=== PATIENT | male | born 1935 | race Caucasian/White ===

== ENCOUNTER 2023-06-25 19:27 | Inpatient (IN) | payer MEDICARE, OTHER, SELFPAY ==
[2023-06-25] VITALS (8 sets, daily range): BP systolic 140–180; BP diastolic 77–109; PULSE 74–95; RESP 20–44; TEMP 36.2–36.6; O2SAT 88–97; BMI 26.6; BMI 27.5
--- NOTE | 2023-06-25 19:43 | EKG12_ITS ---
Test Reason : SOB Blood Pressure : / mmHG Vent. Rate : 067 BPM Atrial Rate : 086 BPM P-R Int : 000 ms QRS Dur : 114 ms QT Int : 406 ms P-R-T Axes : 000 -32 092 degrees QTc Int : 429 ms Critical Test Result: AV Block Sinus rhythm with 2nd degree A-V block (Mobitz I) Left axis deviation Left ventricular hypertrophy with repolarization abnormality ( R in aVL , Eyal product , Romhilt-E stes ) Abnormal ECG Confirmed by RAFAT DASH, MIKE ([id number]), film editor ARSEN CASTRO ([id number]) on 06/29/2023 12:31:52 PM Referred By: CHERY Confirmed By:AMBROSE DOUGLASS MD
[2023-06-25] MEDS: MethylPREDNISolone 125 MG/2 ML Vial IV (20:04)
[2023-06-25] MEDS: Albuterol 2.5 MG/3 ML VIAL.NEB. INHALATION (20:04)
[2023-06-25] MEDS: Ipratropium/Albuterol Sulfate 3 ML AMPUL.NEB INHALATION (20:04)
[2023-06-25 20:10] LABS: Absolute Neutrophil Count 4.4 X10^3/uL (2.0-7.7); Basophil# 0.08 X10^3/uL; Basophil% 0.9 % (0-1); Eosinophil# 0.79 X10^3/uL; Eosinophils% 9.3 % (0-5); Hematocrit 43.8 % (40-54); Hemoglobin 13.7 g/dL (13.0-16.5); Lymphocyte % 30.5 % (19-41); Mean Corp Hgb Conc 31.3 g/dL (32-36); Mean Corpuscular Hgb 29.5 pg (27.0-32.0); Mean Corpuscular Volume 94.2 fL (80-94); Mean Platelet Vol. 9.8 fl (6.2-12.0); Monocyte# 0.68 X10^3/uL; NRBC Flagged by Analyzer 0 % (0-5); Neutrophil # 4.35 X10^3/uL (2.7-7.7); Neutrophil % 51.1 % (47-70); Platelet Count 233 K/mm3 (150-450); RBC Distribution Width CV 13.8 % (11.6-14.6); RBC Distribution Width SD 47.6 fl (35.1-43.9); Red Blood Count 4.65 M/mm3 (4.6-6.2); White Blood Count 8.5 K/mm3 (4.4-11.0)
[2023-06-25 20:29] LABS: ALB/GLOB Ratio 0.9 RATIO (0.9-2.4); AST(SGOT) 21 U/L (15-37); Alanine Aminotransfer ALT/SGPT 14 U/L (16-61); Albumin, Serum 3.4 g/dL (3.2-5.0); Alkaline Phosphatase 95 U/L (45-117); Anion Gap 4 (5-15); BUN 38 mg/dL (7-18); BUN/Creat Ratio 20.9 RATIO (10-20); Calcium,Total 8.3 mg/dL (8.5-10.1); Chloride 111 mmol/L (98-107); Creatinine, Serum 1.82 mg/dL (0.70-1.30); EST Glomerular Filtration Rate 38 mL/min (>60); Est Glom Filt Rate - Afr Amer 46 mL/min (>60); Estimated Creatinine Clearance 27.66 ml/min; Globulin 3.9 g/dL (2.2-4.2); Glucose 118 mg/dL (74-106); Potassium 4.9 mmol/L (3.5-5.1); Protein, Total 7.3 g/dL (6.4-8.2); Sodium Level 143 mmol/L (136-145); Troponin-I HS 42 pg/mL (3.0-78.0)
[2023-06-25 20:39] LABS: Partial Thromboplast Time 33.5 Seconds (24.1-36.2); Prothrombin Time (Protime)PT. 13.5 SECONDS (11.7-14.9)
--- NOTE | 2023-06-25 20:43 | RAD_ITS ---
STUDY: X-RAY CHEST REASON FOR EXAM: Male, 87 years old. hypoxia TECHNIQUE: AP portable COMPARISON: None. FINDINGS: Bilateral reticulonodular interstitial infiltrates in both lower lobes likely inflammatory.... There is no demonstrated pleural abnormality. Postop changes status post median sternotomy and CABG Normal size heart. Normal mediastinum and silvia. Normal visualized pulmonary arteries. Normal visualized aortic arch and descending thoracic aorta. Normal visualized thoracic spine. Normal visualized ribs, and clavicles. Right shoulder prosthesis noted. There is no demonstrated abnormality of the visualized soft tissue structures of the upper abdomen. RAD/Chest 1 View (Portable) IMPRESSION: Bilateral reticulonodular interstitial infiltrates in both lower lobes. True pulmonary nodule cannot be excluded. CT would be useful for more definitive evaluation Electronically Signed: Vinny Elliott MD at 21:09 EDT ,
[2023-06-25 20:44] LABS: Lactic Acid 1.2 mmol/L (0.4-1.9)
[2023-06-25 21:23] LABS: BNP,B-Type NATRIURETIC PEPTIDE 238.2 pg/mL (0-100); D-Dimer Quantitative (DVT/PE) 1.47 FEU/ug/m (0.27-0.49)
[2023-06-25 21:59] LABS: Bacteria 0 SEEN /hpf (None Seen); Mucous, Urine 0 SEEN /hpf (<or=2+); Red Blood Cells-Urine 0 SEEN /hpf (0-5)
[2023-06-25 22:00] LABS: Color, Urine Yellow (Yellow); Glucose, Dipstick Normal (Normal); Ketone-Dipstick Negative (Negative); Leukocyte Esterase-Dipstick Negative /ul (Negative); Nitrite-Dipstick Negative (Negative); Occult Blood-Urine 25 /ul (Negative); Protein-Dipstick 100 mg/dl (Negative); Urine Bilirubin Dipstick Negative (Negative); Urine Clarity Clear (Clear); Urine Urobilinogen Normal (Normal)
--- NOTE | 2023-06-25 22:36 | ED.VIS.DYS ---
HPI History of Present Illness Chief Complaint: Shortness of Breath Narrative Narrative: 87-year-old male presenting with shortness of breath. He states is been ongoing for about 4 weeks. States the last week has been worse. He has been wheezing at home. Does not have a history of asthma or COPD but he does have fibrosis. He has not a fever. His dyspnea is worse with exertion. He denies any chest pain. He admits to a CABG but states he is never had CHF. PFSH PFSH Home Medications Omeprazole [Prilosec] 40 mg PO DAILY 02/07/15 [History Last Taken 02/07/15 08:00] aspirin 81 mg chewable tablet 81 mg PO DAILY@0800 02/07/15 [History Last Taken 02/07/15 08:00] levothyroxine 125 mcg tablet 125 mcg PO DAILY 02/07/15 [History Last Taken 02/07/15 08:00] metoprolol tartrate 25 mg tablet 12.5 mg PO BID 02/07/15 [History Last Taken 02/07/15 08:00] pravastatin 40 mg tablet 40 mg PO DAILY 02/07/15 [History Last Taken 02/07/15 08:00] atorvastatin 80 mg tablet 80 mg PO DAILY 06/25/23 [History Last Taken Unknown] lisinopril 5 mg tablet 2.5 mg PO DAILY 06/25/23 [History Last Taken Unknown] Allergy/AdvReac Type Severity Reaction Status Date / Time No Known Allergies Allergy Verified 06/25/23 19:29 Social History Smoking Status: Never smoker [facility] ED Constitutional Constitutional ED: Denies chills, fever(s) or sweats Eyes Eyes: Denies blurry vision or change in vision ENT ENT ED: Denies ear pain or sore throat Cardiovascular Cardiovascular: Denies chest pain, palpitations or racing heartbeat Respiratory/Chest Respiratory/Chest: Reports cough, dyspnea and dyspnea on exertion; Denies sputum Gastrointestinal Gastrointestinal: Denies abdominal pain, constipation, diarrhea, nausea or vomiting Genitourinary Genitourinary ED: Denies dysuria, hematuria or urinary frequency Musculoskeletal Musculoskeletal: Denies arthralgias, myalgias or neck pain Integumentary Denies abscess, Abrasions or rash Neurologic Neurologic: Denies headache(s), paresthesias or weakness Psychiatric Psychiatric: Denies anxiety, depression, suicidal ideation or suicidal thoughts Endocrine Endocrinology: Denies polydipsia or polyuria EXAM Physical Exam Const Vital Signs: 06/25/23 19:29 06/25/23 19:40 06/25/23 19:57 Temperature 97.2 F L 97.5 F L Temperature Source Temporal Temporal Pulse Rate 95 81 Respiratory Rate 44 H 24 H Respiratory Effort Respiratory Depth Respiratory Pattern Blood Pressure 158/109 H 180/109 H Blood Pressure Mean 125 132 Pulse Ox 88 97 95 Oxygen Delivery Method Room Air Nasal Cannula Oxygen Flow Rate (L/min) 2 06/25/23 20:32 06/25/23 20:40 06/25/23 20:40 Temperature 97.4 F L Temperature Source Temporal Pulse Rate 79 76 76 Respiratory Rate 20 H 20 H 20 H Respiratory Effort Respiratory Depth Respiratory Pattern Tachypnea Blood Pressure 156/77 H 156/77 H Blood Pressure Mean 103 103 Pulse Ox 95 96 Oxygen Delivery Method Nasal Cannula Nasal Cannula Oxygen Flow Rate (L/min) 2 2 06/25/23 20:41 06/25/23 21:34 06/25/23 21:42 Temperature 97.9 F Temperature Source Oral Pulse Rate 77 74 Respiratory Rate 24 H Respiratory Effort Short of Breath Labored Respiratory Depth Deep Respiratory Pattern Tachypnea Blood Pressure 140/93 H Blood Pressure Mean 108 Pulse Ox 96 97 Oxygen Delivery Method Nasal Cannula Room Air Nasal Cannula Oxygen Flow Rate (L/min) 2 2 Positive unkempt Constitutional Narrative: Appears to be in respiratory distress General Appearance ED: unkempt Eyes PERRL and EOMs intact bilaterally Neck no lymphadenopathy and supple Resp Resp Narrative: Neck. Effort and Inspection: tachypneic, respiratory distress, labored, retractions intercostal and subcostal, uses accessory muscles and tripod positioning; Negative for tracheal deviation Auscultation: wheezes expiratory wheezes and inspiratory wheezes Cardio regular rate GI non-tender Extremity normal to inspection Neuro oriented x3 and CN's II-XII intact bilaterally Sensorium / Orientation: alert, oriented to person, oriented to place and oriented to time Psych Appearance: unkempt Mood & Affect: anxious MDM MDM MDM Narrative Medical decision making narrative: Presenting in respiratory distress. He is been short of breath for a month worse over the last week. No fevers or chills. No chest pain. He is audibly wheezing from the doorway. Breathing treatments were given as well as Solu-Medrol. Differential includes CHF, pneumonia, ACS, PE, electrolyte abnormalities, dehydration, COVID, influenza, sepsis, UTI. Patient pancultured. CBC was obtained to assess white blood cell count, hemoglobin, platelets. CMP to assess liver function, renal function, electrolytes. High-sensitivity troponin and EKG were obtained to assess for ischemia and dysrhythmia. BNP to assess for CHF. D-dimer to assess for PE. Chest x-ray my interpretation shows reticulonodular infiltrates in the lower lobes bilaterally. Radiology interpretation agrees. EKG shows a sinus rhythm with a ventricular rate of 67 bpm with changes possibly consistent with second-degree AV block type Mobitz I. CBC shows no significant leukocytosis with white blood cell count 8.5. Hemoglobin stable at 13.7. Platelets are normal at 233. D-dimer was elevated at 147 however the patient's GFR is low at 38 with the last comparison in 2014. Patient is given gentle hydration as he is 87 years old. He is not hypotensive. INR normal. Lactic acid 1.2. Also is negative for infection. BNP 238. Sensitivity troponin 42 reevaluation patient is doing much better he is on 2 L of oxygen and he is not in any respiratory distress. Patient given Rocephin and azithromycin. Discussed with the hospitalist who will hydrate the patient and possibly do a CTA in the morning. Patient admitted in stabilized condition. Impression: 1. EUSEBIO 2. Hypoxic respiratory failure 3. Pneumonia 4. Elevated D-dimer 5. Abnormal EKG Lab Data Attestation: I reviewed the patient's lab results. Labs: Laboratory Results - last 24 hr 06/25/23 06/25/23 06/25/23 19:50 20:56 21:40 WBC 8.5 RBC 4.65 Hgb 13.7 Hct 43.8 MCV 94.2 H MCH 29.5 MCHC 31.3 L RDW Std Deviation 47.6 H RDW Coeff of Allison 13.8 Plt Count 233 MPV 9.8 Immature Gran % (Auto) 0.200 Neut % (Auto) 51.1 Lymph % (Auto) 30.5 Cowley % (Auto) 8.0 Eos % (Auto) 9.3 H Baso % (Auto) 0.9 Absolute Neuts (auto) 4.4 Absolute Lymphs (auto) 2.60 Nucleated RBC % 0 PT 13.5 INR 1.0 APTT 33.5 D-Dimer Quant (PE/DVT) 1.47 H* Sodium 143 Potassium 4.9 Chloride 111 H Carbon Dioxide 28.0 Anion Gap 4 L BUN 38 H Creatinine 1.82 H Estim Creat Clear Calc 27.66 Est GFR (MDRD) Af Amer 46 L Est GFR (MDRD) Non-Af 38 L BUN/Creatinine Ratio 20.9 H Glucose 118 H Lactic Acid 1.2 Calcium 8.3 L Total Bilirubin 0.30 AST 21 ALT 14 L Alkaline Phosphatase 95 Troponin I High Sens 42 B-Natriuretic Peptide 238.2 H Total Protein 7.3 Albumin 3.4 Globulin 3.9 Albumin/Globulin Ratio 0.9 Urine Color Yellow Urine Clarity Clear Urine pH 6.0 Ur Specific [place] 1.020 Urine Protein 100 H Urine Glucose (UA) Normal Urine Ketones Negative Urine Occult Blood 25 H Urine Nitrite Negative Urine Bilirubin Negative Urine Urobilinogen Normal Ur Leukocyte Esterase Negative Urine RBC 0 SEEN Urine WBC 0-5 SEEN Ur Squamous Epith Cells 0-5 SEEN Urine Bacteria 0 SEEN Urine Mucus 0 SEEN Radiography Diagnostic Testing: Clinical Impression(s) from Imaging Studies Chest X-Ray 06/25/23 20:43 IMPRESSION: Bilateral reticulonodular interstitial infiltrates in both lower lobes. True pulmonary nodule cannot be excluded. CT would be useful for more definitive evaluation Electronically Signed: Vinny Elliott MD at 21:09 EDT Reading Location ID and State: [facility] / [place] Tel , Service support , Discharge Plan Triage Chief Complaint: Shortness of Breath ED Provider: David Lynch Dx/Rx/DC Orders Prescriptions: No Action pravastatin 40 MG tablet 40 mg PO DAILY Patient Comments: cholesterol levothyroxine 125 MCG tablet 125 mcg PO DAILY Patient Comments: thyroid aspirin 81 MG tablet,chewable 81 mg PO DAILY@0800 Patient Comments: blood thinner metoprolol tartrate 25 MG tablet 12.5 mg PO BID Patient Comments: blood pressure Omeprazole [Prilosec] 40 MG capsule 40 mg PO DAILY Patient Comments: stomach atorvastatin 80 mg tablet 80 mg PO DAILY lisinopril 5 mg tablet 2.5 mg PO DAILY Primary Care Provider: Dayday Spicer Referrals: Dayday Spicer MD [Primary Care Provider] -
[2023-06-25 22:39] LABS: Squamous Epithelial Cells - UA 0-5 SEEN /hpf (0-5); White Blood Cells 0-5 SEEN /hpf (0-5)
--- NOTE | 2023-06-25 22:51 | HP.PCM.HOS_ITS ---
HPI - General General Date of Admission: 06/25/23 Date of Service: 06/25/23 Chief Complaint: Shortness of breath for 3 to 4 weeks got worse in last 1 week HPI Narrative CICI HUGO, is a 87 M with history of chronic interstitial lung dis ease/fibrosis came to ER with his family for shortness of breath for 4 weeks. Patient is hard of hearing and history mainly taken from patient's . 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 Patient is not on home oxygen. He went for fishing last weekend and after that patient shortness of breath got worse. Patient has mild cough but for last 4 weeks his cough has been worse with bringing up thick yellow nasty phlegm. Patient also felt his mucus was stuck in the chest but last few days he is able to cough out. Denies fever or chills. Patient has history of coronary artery disease and stent and was later on had bypass. Patient is never been a smoker. Denies any occupational inhalation history. In ED patient was tachypneic with respiratory rate 44 blood pressure 158/109 pulse ox 88% on room air. Currently saturating 97% on 2 L of oxygen. Chest x-ray today individually reviewed. Shows bilateral lower lobes patchy reticulonodular interstitial infiltrates in both lungs. Patient creatinine is high therefore CT angiogram was not done but CT lung without contrast was done. Labs EKG and imaging discussed in assessment plan. [facility] Home Medications Omeprazole [Prilosec] 40 mg PO DAILY 02/07/15 [History Last Taken 02/07/15 08:00] aspirin 81 mg chewable tablet 81 mg PO DAILY@0800 02/07/15 [History Last Taken 02/07/15 08:00] levothyroxine 125 mcg tablet 125 mcg PO DAILY 02/07/15 [History Last Taken 02/07/15 08:00] metoprolol tartrate 25 mg tablet 12.5 mg PO BID 02/07/15 [History Last Taken 02/07/15 08:00] pravastatin 40 mg tablet 40 mg PO DAILY 02/07/15 [History Last Taken 02/07/15 08:00] atorvastatin 80 mg tablet 80 mg PO DAILY 06/25/23 [History Last Taken Unknown] lisinopril 5 mg tablet 2.5 mg PO DAILY 10/20/23 [History Last Taken Unknown] Allergy/AdvReac Type Severity Reaction Status Date / Time No Known Allergies Allergy Verified 06/25/23 19:29 Social History Smoking Status: Never smoker ROS ROS Narrative Constitutional: Reports fatigue and weakness. No fever. HEENT: Bilateral hearing impairment. Reports systems reviewed and no addt'l complaints, except as documented Respiratory/Chest: Dyspnea on mild exertion. Rest as described in HPI. CVS: No recent chest pain pressure or tightness Gastrointestinal: Denies coffee ground emesis, hematemesis or vomiting Genitourinary: Denies burning urination or new urinary tract symptoms Musculoskeletal: Denies acute joint pain or limited range of motion. No acute injury Neurologic: Denies seizure-like symptoms. skin: No ulcer. No rash Endocrinology: Reports systems reviewed and no addt'l complaints, except as documented Hematologic/Lymphatic: Reports systems reviewed and no addt'l complaints, except as documented Rest 14 ROS are negative except as mentioned in HPI Vital Signs Vital Signs Vital Signs: 06/25/23 19:29 06/25/23 19:40 06/25/23 19:57 Temperature 97.2 F L 97.5 F L Temperature Source Temporal Temporal Pulse Rate 95 81 Respiratory Rate 44 H 24 H Respiratory Effort Respiratory Depth Respiratory Pattern Blood Pressure 158/109 H 180/109 H Blood Pressure Mean 125 132 Pulse Ox 88 97 95 Oxygen Delivery Method Room Air Nasal Cannula Oxygen Flow Rate (L/min) 2 06/25/23 20:32 06/25/23 20:40 06/25/23 20:40 Temperature 97.4 F L Temperature Source Temporal Pulse Rate 79 76 76 Respiratory Rate 20 H 20 H 20 H Respiratory Effort Respiratory Depth Respiratory Pattern Tachypnea Blood Pressure 156/77 H 156/77 H Blood Pressure Mean 103 103 Pulse Ox 95 96 Oxygen Delivery Method Nasal Cannula Nasal Cannula Oxygen Flow Rate (L/min) 2 2 06/25/23 20:41 06/25/23 21:34 06/25/23 21:42 Temperature 97.9 F Temperature Source Oral Pulse Rate 77 74 Respiratory Rate 24 H Respiratory Effort Short of Breath Labored Respiratory Depth Deep Respiratory Pattern Tachypnea Blood Pressure 140/93 H Blood Pressure Mean 108 Pulse Ox 96 97 Oxygen Delivery Method Nasal Cannula Room Air Nasal Cannula Oxygen Flow Rate (L/min) 2 2 Weight Weight: 180 lb 15.992 oz Body Mass Index (BMI) 27.5 Physical Exam Narrative General: Alert, Oriented x3, Cooperative HEENT: Bilateral profound hearing impairment atraumatic, PERRLA, EOMI, Normocephalic Oral: Oral mucosa dry. No Gingival or Mucosal Lesions/ Ulcerations Neck: Supple, No JVD, Negative Carotid Bruits Lungs: Air entry diminished in bilateral lung bases. Bilateral inspiratory crepitations. Dyspnea on exertion. Cardiovascular: Regular rate, Regular Rhythm, Normal S1, Normal S2, grade 4/6 systolic murmur over right second ICS, LLSB and cardiac apex Abdomen: Bowel Sounds Present, Soft, Non Tender, Non-Distended : No renal angle tenderness. No suprapubic tenderness. Extremities: No edema, Capillary Refill Less than 3 Seconds Skin: No rashes, No breakdown Musculoskeletal: No Tenderness to Palpation of Joints or Extremities. ROM full and intact. Neurological: Cranial nerves II-XII grossly intact, DTR 2+/4. No acute focal neurological deficit. Psych/Mental Status: Normal Affect, Appropriate. Results Lab / Micro Data 06/25/23 19:50 06/25/23 19:50 Labs: Laboratory Results - last 24 hr 06/25/23 19:50: WBC 8.5, RBC 4.65, Hgb 13.7, Hct 43.8, MCV 94.2 H, MCH 29.5, MCHC 31.3 L, RDW Std Deviation 47.6 H, RDW Coeff of Allison 13.8, Plt Count 233, MPV 9.8, Immature Gran % (Auto) 0.200, Neut % (Auto) 51.1, Lymph % (Auto) 30.5, [place] % (Auto) 8.0, Eos % (Auto) 9.3 H, Baso % (Auto) 0.9, Absolute Neuts (auto) 4.4, Absolute Lymphs (auto) 2.60, Nucleated RBC % 0, PT 13.5, INR 1.0, APTT 33.5, Sodium 143, Potassium 4.9, Chloride 111 H, Carbon Dioxide 28.0, Anion Gap 4 L, BUN 38 H, Creatinine 1.82 H, Estim Creat Clear Calc 27.66, Est GFR (MDRD) Af Amer 46 L, Est GFR (MDRD) Non-Af 38 L, BUN/Creatinine Ratio 20.9 H, Glucose 118 H, Lactic Acid 1.2, Calcium 8.3 L, Total Bilirubin 0.30, AST 21, ALT 14 L, Alkaline Phosphatase 95, Troponin I High Sens 42, Total Protein 7.3, Albumin 3.4, Globulin 3.9, Albumin/Globulin Ratio 0.9 06/25/23 20:56: D-Dimer Quant (PE/DVT) 1.47 H*, B-Natriuretic Peptide 238.2 H 06/25/23 21:40: Urine Color Yellow, Urine Clarity Clear, Urine pH 6.0, Ur Specific [place] 1.020, Urine Protein 100 H, Urine Glucose (UA) Normal, Urine Ketones Negative, Urine Occult Blood 25 H, Urine Nitrite Negative, Urine Bilirubin Negative, Urine Urobilinogen Normal, Ur Leukocyte Esterase Negative, Urine RBC 0 SEEN, Urine WBC 0-5 SEEN, Ur Squamous Epith Cells 0-5 SEEN, Urine Bacteria 0 SEEN, Urine Mucus 0 SEEN Micro: Microbiology 06/25/23 19:50 Nasal Secretion SARS-CoV-2 & FLU Antigen (Rapid) - Final Radiology Impression Chest X-Ray 06/25/23 20:43 IMPRESSION: Bilateral reticulonodular interstitial infiltrates in both lower lobes. True pulmonary nodule cannot be excluded. CT would be useful for more definitive evaluation Electronically Signed: Vinny Elliott MD at 21:09 EDT , Assessment & Plan Assessment/Plan (1) Pneumonia: QUALIFIERS: Pneumonia type: due to unspecified organism Laterality: bilateral Lung location: lower lobe of lung Qualified Code(s): J18.9 - Pneumonia, unspecified organism PLAN: Plan This 87 gentleman being admitted for progressive worsening of shortness of breath for 4 weeks. With history of chronic interstitial lung disease/fibrosis 1. Possible worsening of chronic interstitial lung disease with suspicion of bilateral interstitial pneumonia although exact etiology unclear: Patient has clinical features of pneumonia including shortness of breath, cough sputum production and tachypnea. CT chest without contrast was immediately showed bi lateral peripheral pulmonary fibrosis with scattered atelectasis but no consolidative pneumonia. Moderate hiatus hernia. Pneumonia work-up ordered including blood cultures x2. Patient is started on IV ceftriaxone and azithromycin. COVID rapid and flu antigen are negative. COVID PCR ordered. DuoNeb, IV Solu-Medrol incentive spirometry and Pep ordered. D-dimer is elevated 1.47 with corrected D-dimer for age is 0.87. CT angiogram not done because of EUSEBIO. VQ scan and venous duplex of lower extremities ordered for tomorrow AM. As per he is very mobile and active and no recent surgery . Modified Wells criteria is 0 or 1. Pulmonary consult requested for further evaluation and opinion. 2. Coronary artery disease status post CABG and PCI in the past: Patient had bypass after PCI in 2016. No recent chest pain or anginal-like symptoms. Troponin is negative. BNP elevated but patient not having signs or symptoms or radiological findings of pulmonary edema or leg swelling. CT chest reported no mediastinal hilar adenopathy, no pericardial effusion. Continue aspirin, and metoprolol. Metoprolol dose increased 25 mg twice daily. 3. Kidney dysfunction unclear whether EUSEBIO or progression of CKD exact staging could not be determined: Patient BUN/creatinine 38/1.82. Last BUN/creatinine in our system was from February 2015 more than 8 years ago 26/09.4. IV fluid normal saline ordered. Sodium potassium in normal range. Bicarb 28 anion gap 4. Hold lisinopril. 4. Other comorbidities include dyslipidemia, GERD with moderate hiatus hernia: Patient on both atorvastatin and pravastatin. Hold atorvastatin and pravastatin continued. Fasting profile tomorrow AM DVT prophylax, moderate to high risk: Lovenox 30 mg subcu daily adjusted to the creatinine clearance. DVT prophylaxis Living will/advanced directive/end of life care: Patient does not have living will or advanced directive. His is next of kin after discussion of benefits/risks procedures involved with full code, DNR CC arrest with and without intubation and DNR CC, the patient himself did not want intubation or ventilator but wanted CPR. Try to reconcile that CPR without intubation is not meaningful in terms of effective resuscitation effort. Patient and his is in decision therefore full code until further decision is made Patient does want artificial life support including intubation, tube feed, ventilator and/chest compression, central venous catheter, vasopressor and DC shock if needed Total time spent in [id number] encounter in discussion of advanced directive 17 minutes. Microbiology Past 72 Hours 06/25/23 19:50 Nasal Secretion SARS-CoV-2 & FLU Antigen (Rapid) - Final Laboratory Results 06/25/23 19:50: WBC 8.5, RBC 4.65, Hgb 13.7, Hct 43.8, MCV 94.2 H, MCH 29.5, MCHC 31.3 L, RDW Std Deviation 47.6 H, RDW Coeff of Allison 13.8, Plt Count 233, MPV 9.8, Immature Gran % (Auto) 0.200, Neut % (Auto) 51.1, Lymph % (Auto) 30.5, [place] % (Auto) 8.0, Eos % (Auto) 9.3 H, Baso % (Auto) 0.9, Absolute Neuts (auto) 4.4, Absolute Lymphs (auto) 2.60, Nucleated RBC % 0, PT 13.5, INR 1.0, APTT 33.5, Sodium 143, Potassium 4.9, Chloride 111 H, Carbon Dioxide 28.0, Anion Gap 4 L, BUN 38 H, Creatinine 1.82 H, Estim Creat Clear Calc 27.66, Est GFR (MDRD) Af Amer 46 L, Est GFR (MDRD) Non-Af 38 L, BUN/Creatinine Ratio 20.9 H, Glucose 118 H, Lactic Acid 1.2, Calcium 8.3 L, Total Bilirubin 0.30, AST 21, ALT 14 L, Alkaline Phosphatase 95, Troponin I High Sens 42, Total Protein 7.3, Albumin 3.4, Globulin 3.9, Albumin/Globulin Ratio 0.9 06/25/23 20:56: D-Dimer Quant (PE/DVT) 1.47 H*, B-Natriuretic Peptide 238.2 H 06/25/23 21:40: Urine Color Yellow, Urine Clarity Clear, Urine pH 6.0, Ur Specific [place] 1.020, Urine Protein 100 H, Urine Glucose (UA) Normal, Urine Ketones Negative, Urine Occult Blood 25 H, Urine Nitrite Negative, Urine Bilirubin Negative, Urine Urobilinogen Normal, Ur Leukocyte Esterase Negative, Urine RBC 0 SEEN, Urine WBC 0-5 SEEN, Ur Squamous Epith Cells 0-5 SEEN, Urine Bacteria 0 SEEN, Urine Mucus 0 SEEN Clinical Impression(s) from Imaging Studies Chest X-Ray 06/25/23 20:43 IMPRESSION: Bilateral reticulonodular interstitial infiltrates in both lower lobes. True pulmonary nodule cannot be excluded. CT would be useful for more definitive evaluation Chest CT 06/25/23 23:09 IMPRESSION: Bilateral peripheral pulmonary fibrosis with scattered atelectasis. No evidence of consolidative pneumonia. Moderate hiatal hernia. 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 Cholelithiasis. Charges/Coding Visit Charges Inpatient E&M: 98104 Init Hosp L3 Procedures Hospitalists Procedures: [id number] Advncd Care Plan 30 Min
--- NOTE | 2023-06-25 23:09 | CT_ITS ---
INDICATION: Dyspnea worsening EXAMINATION: CT CHEST WITHOUT CONTRAST - CT Chest W/O Contrast Injection TECHNIQUE: Helically acquired images were obtained of the chest. A radiation dose optimization technique was used for this scan. IV Contrast dosage and agent: None. COMPARISON: Chest radiograph June 25, 2023. FINDINGS: LUNGS, PLEURA AND LARGE AIRWAYS: Bilateral peripheral fibrosis with areas of honeycombing. Scattered subsegmental atelectasis. No consolidation. No effusion. No pneumothorax. Small calcified granuloma lateral right upper lobe. THYROID: No thyroid lesions. HEART AND PERICARDIUM: Mild cardiomegaly. No pericardial effusion. Severe multivessel coronary atherosclerosis with bypass changes. Prosthetic aortic valve. . VESSELS: Aortic atherosclerosis without ectasia or intramural hematoma. MEDIASTINUM AND SATISH: No mediastinal or hilar adenopathy. Esophagus is unremarkable. Moderate hiatal hernia.. UPPER ABDOMEN: Gallbladder is well filled with suggestion of multiple small stones.. BONES: No suspicious lytic or blastic abnormality. Midline sternotomy wires. Right humeral arthroplasty partially seen. CT/Chest without Contrast IMPRESSION: Bilateral peripheral pulmonary fibrosis with scattered atelectasis. No evidence of consolidative pneumonia. Moderate hiatal hernia. 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 Cholelithiasis. Electronically Signed: Kwasi Padron MD at 0:07 EDT ,
[2023-06-25] MEDS: Ceftriaxone 1 GM/50 ML BAG IV (23:50)
[2023-06-26] VITALS (17 sets, daily range): BP systolic 103–158; BP diastolic 61–99; PULSE 61–88; RESP 16–22; TEMP 36.2–36.9; O2SAT 95–98; BMI 26.7
[2023-06-26 00:48] LABS: Magnesium 1.8 mg/dL (1.6-2.6)
[2023-06-26 01:28] LABS: CPK Total, Creatine Kinase 130 U/L (39-308)
[2023-06-26] MEDS: Azithromycin 500 MG in Dextrose 5%-Water (250mL Bag) 250 ML 250 MG IV ×2 (01:39→22:19)
[2023-06-26] MEDS: 0.9% Normal Saline (1000mL) 1,000 ML 75 ML IV ×2 (01:39→22:19)
[2023-06-26] MEDS: Methylprednisolone Sod Succ 40 MG/ML VIAL IV ×4 (01:55→21:28)
[2023-06-26] MEDS: Ipratropium/Albuterol Sulfate 3 ML AMPUL.NEB INHALATION ×6 (02:00→23:26)
[2023-06-26] MEDS: guaiFENesin 1,200 MG Tablet 1200 MG PO ×3 (02:05→21:28)
[2023-06-26] MEDS: Enoxaparin 30 MG/0.3 ML Syringe SC (02:05)
[2023-06-26 05:19] LABS: M R Staph aureus DNA By PCR Negative (Negative); Probe Check PASS; Specimen Processing Control PASS
--- NOTE | 2023-06-26 05:55 | VDLE_ITS ---
Reason For Study: Elevated D-Dimer RIGHT LEFT GSV is normal. GSV is normal. CFV is compressible, spontaneous, phasic, CFV is compressible, spontaneous, phasic, competent and demonstrates normal competent, and demonstrates normal augmentation. augmentation. FV is compressible, spontaneous, phasic, FV is compressible, spontaneous, phasic, competent and demonstrates normal competent and demonstrates normal augmentation. augmentation. POP V is compressible, spontaneous, phasic, POP V is compressible, spontaneous, phasic, competent and demonstrates normal competent and demonstrates normal augmentation. augmentation. T/P Trunk is compressible. T/P Trunk is compressible. PTV is compressible. PTV is compressible. RT PerV is compressible. LT PerV is compressible. Procedure This is a venous duplex using B-mode, color flow and spectral Doppler. Exam performed portable in patient room. A preliminary report was called and/or faxed to Martine NEFF. VL/Venous Duplex US - Chris Extrem Interpretation Summary No evidence for acute deep venous thrombosis bilateral lower extremities with p atent and compressible bilateral great saphenous veins. Ordering Physician: Austin Armendariz Referring Physician: Angel Spicer Performed By: Maine Sanchez, ERMIAS, RVT
--- NOTE | 2023-06-26 05:55 | NM_ITS ---
INDICATION: Worsening dyspnea, concerning for pulmonary embolism. EXAMINATION: NUCLEAR MEDICINE VQ SCAN - NM Pulmonary Ventilation Perfusion Imaging TECHNIQUE: Routine VQ scan protocol was performed using 58 mCi Tc-99m DTPA aerosol and 5.7 mCi intravenous Technetium 99m MAA. COMPARISON: Chest x-ray of 06/26/2023. FINDINGS: Heterogeneous ventilation scan with patchy areas of decreased ventilation. Somewhat decreased uptake in the left lower lung matched with ventilation scan. No other perfusion defect is seen. No mismatched defects are identified. NM/Quant Lung Vent/Perf Scan IMPRESSION: 1. Heterogeneous ventilation scan consistent with airspace disease. 2. Low probability for pulmonary embolism. Electronically Signed: Omid Arellano MD at 12:45 EDT ,
--- NOTE | 2023-06-26 06:23 | CON.PCM.CC_ITS ---
Assessment & Plan Assessment/Plan (1) SOB (shortness of breath): PLAN: Plan RECOMMENDATIONS: 1. Supplemental oxygen to maintain saturations at or above 90%. 2. Avoid VQ scan, as it would not be indicated in this particular situation. 3. Autoimmune work-up as ordered. 4. Perform walking oximetry study prior to consideration for discharge home. 5. Outpatient pulmonary follow-up in 2 weeks. IMPRESSIONS: 1. Shortness of breath and hypoxemia The patient presented to the hospital with progressive shortness of breath with a history of unspecified pulmonary fibrosis. He was previously under the care of Dr. Le several years ago. 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 It is certainly plausible that the patient's pulmonary fibrosis may have progressed over the last several years. However, I do not have any prior imaging for comparison. At this time, I would recommend that we send off an autoimmune panel to evaluate for secondary causes of interstitial lung disease. The patient will ultimately need to follow-up in the pulmonary medicine clinic so that baseline PFTs can be obtained. Depending on his clinical course, he may be a candidate for antifibrotic therapy, such as pirfenidone or nintedanib. The decision to initiate this therapy would be decided on an outpatient basis. Perform walking oximetry study prior to consideration for discharge home and set up the patient for home-going supplemental O2, if needed. 2. History of coronary artery disease status post CABG/chronic kidney dis ease/GERD/hyperlipidemia/advanced age Complicates care, management, recovery and prognosis. Continue current supportive measures along with home medications, as indicated. This note was generated with Xtone dictation software. It may contain incorrect words, spelling, and punctuation that were not noted in checking the note before signing. HPI Consult Data Date of Consult: 06/26/23 HPI Narrative Reason for Consultation: Lung fibrosis HPI Narrative: The patient is an 87-year-old male, with a history as outlined below, who presented to the emergency department on June 25 with shortness of breath. History was obtained both from the patient and his via telephone. They confirmed that the patient was seen several years ago by Dr. Le. The patient was apparently told that he had pulmonary fibrosis, which has been stable on chest x-ray and that no additional intervention was required. At his baseline, the patient does not require supplemental oxygen. He is a non-smoker. He has never been diagnosed with COPD or asthma previously. On presentation to the emergency department, the patient was noted to be afebrile and hemodynamically stable. He was initially documented to be saturating 88% on room air. Initial laboratory evaluation revealed no evidence of a leukocytosis. D-dimer was mildly elevated at 1.47. Chemistry profile was notable for a creatinine of 1.82. BNP was mildly elevated at 238. A noncontrasted chest CT demonstrated subpleural bilateral interstitial septal thi ckening with areas of honeycomb formation, along with a moderate hiatal hernia. Respiratory viral panel was negative. COVID PCR was negative. The patient was placed on azithromycin and IV steroids. He was admitted to the progressive care unit for further management. [facility] Home Medications aspirin 81 mg chewable tablet 81 mg PO DAILY@0800 02/07/15 [History Last Taken 02/07/15 08:00] levothyroxine 125 mcg tablet 125 mcg PO DAILY 02/07/15 [History Last Taken 02/07/15 08:00] metoprolol tartrate 25 mg tablet 12.5 mg PO BID 02/07/15 [History Last Taken 02/07/15 08:00] pravastatin 40 mg tablet 40 mg PO DAILY 02/07/15 [History Last Taken 02/07/15 08:00] atorvastatin 80 mg tablet 80 mg PO DAILY 06/25/23 [History Last Taken Unknown] lisinopril 5 mg tablet 2.5 mg PO DAILY 06/25/23 [History Last Taken Unknown] omeprazole 40 mg capsule,delayed release 40 mg PO DAILY stomach 06/26/23 [History Last Taken Unknown] Allergy/AdvReac Type Severity Reaction Status Date / Time No Known Allergies Allergy Verified 06/25/23 19:29 Social History (Updated 06/26/23 @ 01:32 by Yuliya Greenwood) service: Yes current occupational status: retired Smoking Status: Never smoker ROS ROS Narrative 10 systems were reviewed with pertinent positives as noted in the HPI above. Physical Exam Const alert and no apparent distress General Appearance: cooperative HEENT normocephalic and head/scalp atraumatic General Ear: hearing grossly impaired Eyes PERRL, EOMs intact bilaterally and conjunctivae normal Neck supple General: trachea midline Chest inspection of chest normal Resp normal respiratory effort Effort and Inspection: able to speak in complete sentences Auscultation: rales Cardio regular rate and regular rhythm GI normal to inspection, nondistended, normoactive bowel sounds Extremity no clubbing, cyanosis or edema Skin no rashes or lesions noted Neuro oriented x3, CN's II-XII intact bilaterally and moves all extremities Psych cooperative and affect normal Lab / Micro Data 06/25/23 19:50 06/25/23 19:50 Labs: Laboratory Results - last 24 hr 06/25/23 19:50: WBC 8.5, RBC 4.65, Hgb 13.7, Hct 43.8, MCV 94.2 H, MCH 29.5, MCHC 31.3 L, RDW Std Deviation 47.6 H, RDW Coeff of Allison 13.8, Plt Count 233, MPV 9.8, Immature Gran % (Auto) 0.200, Neut % (Auto) 51.1, Lymph % (Auto) 30.5, Swift % (Auto) 8.0, Eos % (Auto) 9.3 H, Baso % (Auto) 0.9, Absolute Neuts (auto) 4.4, Absolute Lymphs (auto) 2.60, Nucleated RBC % 0, PT 13.5, INR 1.0, APTT 33.5, Sodium 143, Potassium 4.9, Chloride 111 H, Carbon Dioxide 28.0, Anion Gap 4 L, BUN 38 H, Creatinine 1.82 H, Estim Creat Clear Calc 27.66, Est GFR (MDRD) Af Amer 46 L, Est GFR (MDRD) Non-Af 38 L, BUN/Creatinine Ratio 20.9 H, Glucose 118 H, Lactic Acid 1.2, Calcium 8.3 L, Magnesium 1.8, Total Bilirubin 0.30, AST 21, ALT 14 L, Alkaline Phosphatase 95, Total Creatine Kinase 130, Troponin I High Sens 42, Total Protein 7.3, Albumin 3.4, Globulin 3.9, Albumin/Globulin Ratio 0.9 06/25/23 20:56: D-Dimer Quant (PE/DVT) 1.47 H*, B-Natriuretic Peptide 238.2 H 06/25/23 21:40: Urine Color Yellow, Urine Clarity Clear, Urine pH 6.0, Ur S pecific [place] 1.020, Urine Protein 100 H, Urine Glucose (UA) Normal, Urine Ketones Negative, Urine Occult Blood 25 H, Urine Nitrite Negative, Urine Bili more Negative, Urine Urobilinogen Normal, Ur Leukocyte Esterase Negative, Urine RBC 0 SEEN, Urine WBC 0-5 SEEN, Ur Squamous Epith Cells 0-5 SEEN, Urine Bacteria 0 SEEN, Urine Mucus 0 SEEN 06/26/23 01:55: MRSA (PCR) Negative Micro: Microbiology 06/26/23 01:50 Mucosa - Nasopharyngeal Respiratory Panel (PCR) - Final 06/26/23 01:50 Mucosa - Nasopharyngeal Coronavirus COVID-19 PCR - Final 06/25/23 19:50 Nasal Secretion SARS-CoV-2 & FLU Antigen (Rapid) - Final Radiology Impression Chest X-Ray 06/25/23 20:43 IMPRESSION: Bilateral reticulonodular interstitial infiltrates in both lower lobes. True pulmonary nodule cannot be excluded. CT would be useful for more definitive evaluation Electronically Signed: Vinny Elliott MD at 21:09 EDT , Chest CT 06/25/23 23:09 IMPRESSION: Bilateral peripheral pulmonary fibrosis with scattered atelectasis. No evidence of consolidative pneumonia. Moderate hiatal hernia. 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 Cholelithiasis. Electronically Signed: Kwasi Padron MD at 0:07 EDT , Charges/Coding Visit Charges Inpatient E&M: 20393 Init Hosp L3
[2023-06-26] MEDS: Levothyroxine 125 MCG Tablet PO (06:43)
[2023-06-26] MEDS: 0.9% Saline Lock 10 ML Syringe IV (06:46)
[2023-06-26 08:10] LABS: Absolute Lymphocyte Count 1.02 X10^3/uL (0.83-4.51); Absolute Neutrophil Count 6.9 X10^3/uL (2.0-7.7); Basophil# 0.01 X10^3/uL; Basophil% 0.1 % (0-1); Eosinophil# 0.01 X10^3/uL; Eosinophils% 0.1 % (0-5); Hematocrit 42.2 % (40-54); Hemoglobin 12.9 g/dL (13.0-16.5); Lymphocyte # 1.02 X10^3/ul (0.83-4.51); Lymphocyte % 12.6 % (19-41); Mean Corp Hgb Conc 30.6 g/dL (32-36); Mean Corpuscular Hgb 29.1 pg (27.0-32.0); Mean Platelet Vol. 10.1 fl (6.2-12.0); Monocyte# 0.08 X10^3/uL; NRBC Flagged by Analyzer 0 % (0-5); Neutrophil # 6.93 X10^3/uL (2.7-7.7); Neutrophil % 85.7 % (47-70); Platelet Count 220 K/mm3 (150-450); RBC Distribution Width CV 13.8 % (11.6-14.6); RBC Distribution Width SD 48.7 fl (35.1-43.9); Red Blood Count 4.44 M/mm3 (4.6-6.2); White Blood Count 8.1 K/mm3 (4.4-11.0)
[2023-06-26 08:19] LABS: Rheumatoid Factor < 10.0 IU/mL (<15)
[2023-06-26 08:29] LABS: Anion Gap 9 (5-15); BUN 39 mg/dL (7-18); BUN/Creat Ratio 18.9 RATIO (10-20); Calcium,Total 8.6 mg/dL (8.5-10.1); Chloride 109 mmol/L (98-107); Creatinine, Serum 2.06 mg/dL (0.70-1.30); EST Glomerular Filtration Rate 33 mL/min (>60); Est Glom Filt Rate - Afr Amer 39 mL/min (>60); Estimated Creatinine Clearance 24.44 ml/min; Glucose 202 mg/dL (74-106); Phosphorus 3.5 mg/dL (2.5-4.9); Sodium Level 141 mmol/L (136-145); Thyroid Stim Hormone (TSH) 0.45 uIU/mL (0.358-3.74)
--- NOTE | 2023-06-26 09:00 | RAD_ITS ---
STUDY: X-RAY CHEST REASON FOR EXAM: Male, 87 years old. After Lung Perfusion Scan TECHNIQUE: PA and lateral views of the chest. COMPARISON: 06/25/2023 FINDINGS: Status post median sternotomy. There are interstitial fibrotic changes of the lungs. There is no demonstrated pleural abnormality. There is moderate cardiac enlargement. Normal mediastinum and silvia. Normal visualized pulmonary arteries. Normal visualized aortic arch and descending thoracic aorta. Normal visualized thoracic spine. Normal visualized ribs, clavicles, and shoulders. There is no demonstrated abnormality of the visualized soft tissue structures of the upper abdomen. RAD/Chest PA and Lateral IMPRESSION: No change from 06/25/2023. Electronically Signed: Kameron Baca MD at 14:43 EDT ,
[2023-06-26] MEDS: Metoprolol Tartrate 25 MG Tablet PO ×2 (09:18→21:28)
[2023-06-26] MEDS: Pravastatin 40 MG Tablet PO (09:18)
[2023-06-26] MEDS: Aspirin 81 MG TAB.CHEW PO (09:18)
--- NOTE | 2023-06-26 09:18 | CASEMGMT ---
TAWANDA RIVAS Assessment: Face to Face with pt for initial transition planning/care coordination assessment. RN CM introduced self and role at [facility], pt voices understanding and consents to assessment. Pt is A&O x4 and answers all questions appropriately at this time. Pt sitting up in bed eating breakfast with and visitor at bedside. Care providers, pharmacy, and demographics verified/updated. Admitting Dx: dyspnea PCP:Nayan Specialists:Vinayak cardio at [facility] Preferred Pharmacy: [facility] Insurance: [facility], [facility] Prescription Benefit: yes LNOK: Karen Mongeman, Living Arrangements: Pt lives with in a two story home with 1 step to enter. Pt reports he is I in ADL's and does IADL's. Pt denies concerns at home. Transportation: Pt drives self and denies concerns with transportation. DME:None HHC/SNF: Denies hx of Pt states no concerns with going home at time of dc. Pt states no further concerns/needs. CM to follow. Advised pt to ask CM if any further question/concerns/needs arise, voices understanding. Pt Goal: Home Plan: Home, green sheet on chart for oxygen
[2023-06-26] MEDS: Pantoprazole Sodium 40 MG Tablet PO (09:19)
--- NOTE | 2023-06-26 15:43 | PCM.PN.HOSP ---
Reason for Visit Reason for Visit: Diagnoses Pneumonia, unspecified organism (06/25/23) Shortness of breath (06/25/23) Subjective Subjective Patient seen at bedside this morning. Sitting comfortably in bed, conversing normally, no acute distress. and other family member present. Patient was having his venous duplex ultrasound done during my interview. Patient states that he feels significantly improved from yesterday. Denies any shortness of breath or chest pain at rest. Denies any fevers or chills. No other acute concerns this morning. Objective Data Objective Data Vital Signs: Vital Signs Temp Pulse Resp BP Pulse Ox O2 Del Method O2 Flow Rate 97.7 F L 78 22 H 158/61 H 95 Nasal Cannula 2 06/26/23 12:17 06/26/23 14:45 06/26/23 14:45 06/26/23 12:17 06/26/23 12:17 06/26/23 12:17 06/26/23 12:17 Oxygen Flow Rate (L/min) 2 Oxygen Delivery Method Nasal Cannula Weight: 79.9 kg Body Mass Index (BMI) 26.7 Intake & Output: Intake and Output for Last 24 Hours 06/24/23 06/25/23 06/26/23 23:59 23:59 23:59 Intake Total 1366.25 / 1366.25 Output Total 400 / 400 Balance 966.25 / 966.25 Lab / Micro Data 06/26/23 07:56 06/26/23 07:56 Labs: Laboratory Results - last 24 hr 06/25/23 19:50: WBC 8.5, RBC 4.65, Hgb 13.7, Hct 43.8, MCV 94.2 H, MCH 29.5, MCHC 31.3 L, RDW Std Deviation 47.6 H, RDW Coeff of Allison 13.8, Plt Count 233, MPV 9.8, Immature Gran % (Auto) 0.200, Neut % (Auto) 51.1, Lymph % (Auto) 30.5, Bennett % (Auto) 8.0, Eos % (Auto) 9.3 H, Baso % (Auto) 0.9, Absolute Neuts (auto) 4.4, Absolute Lymphs (auto) 2.60, Nucleated RBC % 0, PT 13.5, INR 1.0, APTT 33.5, Sodium 143, Potassium 4.9, Chloride 111 H, Carbon Dioxide 28.0, Anion Gap 4 L, BUN 38 H, Creatinine 1.82 H, Estim Creat Clear Calc 27.66, Est GFR (MDRD) Af Amer 46 L, Est GFR (MDRD) Non-Af 38 L, BUN/Creatinine Ratio 20.9 H, Glucose 118 H, Lactic Acid 1.2, Calcium 8.3 L, Magnesium 1.8, Total Bilirubin 0.30, AST 21, ALT 14 L, Alkaline Phosphatase 95, Total Creatine Kinase 130, Troponin I High Sens 42, Total Protein 7.3, Albumin 3.4, Globulin 3.9, Albumin/Globulin Ratio 0.9 06/25/23 20:56: D-Dimer Quant (PE/DVT) 1.47 H*, B-Natriuretic Peptide 238.2 H 06/25/23 21:40: Urine Color Yellow, Urine Clarity Clear, Urine pH 6.0, Ur Specific [place] 1.020, Urine Protein 100 H, Urine Glucose (UA) Normal, Urine Ketones Negative, Urine Occult Blood 25 H, Urine Nitrite Negative, Urine Bilirubin Negative, Urine Urobilinogen Normal, Ur Leukocyte Esterase Negative, Urine RBC 0 SEEN, Urine WBC 0-5 SEEN, Ur Squamous Epith Cells 0-5 SEEN, Urine Bacteria 0 SEEN, Urine Mucus 0 SEEN 06/26/23 01:55: MRSA (PCR) Negative 06/26/23 07:56: WBC 8.1, RBC 4.44 L, Hgb 12.9 L, Hct 42.2, MCV 95.0 H, MCH 29.1, MCHC 30.6 L, RDW Std Deviation 48.7 H, RDW Coeff of Allison 13.8, Plt Count 220, MPV 10.1, Immature Gran % (Auto) 0.500, Neut % (Auto) 85.7 H, Lymph % (Auto) 12.6 L, Bennett % (Auto) 1.0, Eos % (Auto) 0.1, Baso % (Auto) 0.1, Absolute Neuts (auto) 6.9, Absolute Lymphs (auto) 1.02, Nucleated RBC % 0, Sodium 141, Potassium 5.0, Chloride 109 H, Carbon Dioxide 23.0, Anion Gap 9, BUN 39 H, Creatinine 2.06 H, Estim Creat Clear Calc 24.44, Est GFR (MDRD) Af Amer 39 L, Est GFR (MDRD) Non-Af 33 L, BUN/Creatinine Ratio 18.9, Glucose 202 H, Calcium 8.6, Phosphorus 3.5, TSH 0.45, Rheumatoid Factor < 10.0 Micro: Microbiology 06/26/23 01:55 Sputum, Expectorated/Coughed Gram Stain - Final 06/26/23 06:44 Urine Catheter - Catheter Legionella Antigen - Final 06/26/23 06:44 Urine Catheter - Catheter Streptococcus pneumoniae Antigen (M - Final 06/26/23 01:50 Mucosa - Nasopharyngeal Respiratory Panel (PCR) - Final 06/26/23 01:50 Mucosa - Nasopharyngeal Coronavirus COVID-19 PCR - Final 06/25/23 19:50 Nasal Secretion SARS-CoV-2 & FLU Antigen (Rapid) - Final Radiography Diagnostic Testing: Radiology Impression Chest X-Ray 06/25/23 20:43 IMPRESSION: Bilateral reticulonodular interstitial infiltrates in both lower lobes. True pulmonary nodule cannot be excluded. CT would be useful for more definitive evaluation Electronically Signed: Vinny Elliott MD at 21:09 EDT , Chest CT 06/25/23 23:09 IMPRESSION: Bilateral peripheral pulmonary fibrosis with scattered atelectasis. No evidence of consolidative pneumonia. Moderate hiatal hernia. 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 Cholelithiasis. Electronically Signed: Kwasi Padron MD at 0:07 EDT , Lung Scan-VQ NM 06/26/23 05:55 IMPRESSION: 1. Heterogeneous ventilation scan consistent with airspace disease. 2. Low probability for pulmonary embolism. Electronically Signed: Omid Arellano MD at 12:45 EDT , Chest X-Ray 06/26/23 09:00 IMPRESSION: No change from 06/25/2023. Electronically Signed: Kameron Baca MD at 14:43 EDT , Physical Exam Const alert and oriented x3 Constitutional Narrative: Pleasant elderly male, sitting comfortably in bed, conversing normally, no acute distress. Satting well on 2 L nasal cannula, no increased work of breathing noted. General Appearance: cooperative and comfortable HEENT normocephalic, head/scalp atraumatic, hearing grossly normal bilaterally, nasal mucous membranes and turbinates normal and moist oral mucous membranes Eyes PERRL, EOMs intact bilaterally and conjunctivae normal Neck full ROM, no lymphadenopathy and supple Lymph Lymphatic: no lymphadenopathy noted Chest inspection of chest normal Resp Resp Narrative: Bilateral crackles noted, otherwise with good air movement bilaterally, no wheezing noted. Cardio regular rate, regular rhythm, no murmurs and peripheral pulses 2+ throughout GI normal to inspection, nondistended, normoactive bowel sounds, soft to palpation, non-tender and non-distended Back/Spine normal ROM Extremity normal to inspection, full ROM and no pedal edema Skin no rashes or lesions noted Psych mental status grossly normal Assessment & Plan Assessment/Plan (1) SOB (shortness of breath): PLAN: Plan Patient is an 87-year-old male with history of chronic interstitial lung disease, CAD s/p CABG and PCI, hyperlipidemia and GERD who presented to [facility] ED on 06/25/2023 with worsening shortness of breath. 1. Hypoxia, history of chronic interstitial lung disease Presented with progressive shortness of breath over the last 3 to 4 weeks. Chest x-ray showed interstitial fibrotic changes of the lungs, moderate cardiac enlargement, no change from previous chest x-ray. CT chest without contrast showed bilateral peripheral pulmonary fibrosis, no evidence of consolidative pneumonia. VQ scan with low probability of pulmonary embolism. Vital stable on admit, WBC count normal, COVID and respiratory panel negative, urine antigens negative. ? Pulmonology following. Suspect this may be progression of IPF, however cannot be sure as there is no prior imaging for comparison. Autoimmune panel ordered. Will need outpatient follow-up with pulmonology on discharge. Will need walking oximetry study prior to discharge. Chronic medical conditions: ? CAD s/p CABG and PCI: Continue aspirin, atorvastatin, lisinopril, Lopressor. ? Hypothyroidism: Continue home Synthroid. ? GERD: Continue home PPI. DVT prophylaxis: Lovenox CODE STATUS: Full code, verified Expected disposition: Home, 1 to 2 days Total clinical time spent by myself addressing the patient's medical issues, reviewing all the data, and collaborating with patient's care team: 35 minutes. Charges/Coding Visit Charges Inpatient E&M: 29570 Subs Hosp L2
[2023-06-26] MEDS: Ceftriaxone 1 GM in 0.9% Normal Saline (50mL MB+) 50 ML IV (21:28)
[2023-06-27] VITALS (7 sets, daily range): BP systolic 103–134; BP diastolic 60–61; PULSE 67–90; RESP 16–18; TEMP 36.5–36.6; O2SAT 91–96
[2023-06-27] MEDS: Ipratropium/Albuterol Sulfate 3 ML AMPUL.NEB INHALATION ×3 (03:03→11:17)
--- NOTE | 2023-06-27 06:03 | PCM.PN.INT ---
Assessment & Plan Assessment/Plan (1) SOB (shortness of breath): PLAN: Plan RECOMMENDATIONS: 1. Supplemental oxygen to maintain saturations at or above 90%. 2. Autoimmune work-up pending. 3. Perform walking oximetry study prior to consideration for discharge home. 4. Outpatient pulmonary follow-up in 2 weeks. Need to obtain baseline PFTs and prior pulmonary records from Dr. Le. 5. No additional inpatient pulmonary work-up is indicated. We will sign off at this time. IMPRESSIONS: 1. Shortness of breath and hypoxemia The patient presented to the hospital with progressive shortness of breath with a history of unspecified pulmonary fibrosis. He was previously under the care of Dr. Le several years ago. 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 It is certainly plausible that the patient's pulmonary fibrosis may have progressed over the last several years. However, I do not have any prior imaging for comparison. At this time, I would recommend that we send off an autoimmune panel to evaluate for secondary causes of interstitial lung disease. The patient will ultimately need to follow-up in the pulmonary medicine clinic so that baseline PFTs can be obtained. Depending on his clinical course, he may be a candidate for antifibrotic therapy, such as pirfenidone or nintedanib. The decision to initiate this therapy would be decided on an outpatient basis. Perform walking oximetry study prior to consideration for discharge home and set up the patient for home-going supplemental O2, if needed. 2. History of coronary artery disease status post CABG/chronic kidney disease/GERD/hyperlipidemia/advanced age Complicates care, management, recovery and prognosis. Continue current supportive measures along with home medications, as indicated. This note was generated with [employer] dictation software. It may contain incorrect words, spelling, and punctuation that were not noted in checking the note before signing. Subjective Subjective The patient was seen and examined at the bedside this morning. Events from the last 24 hours have been reviewed. The patient is currently afebrile, hemodynamically stable and maintaining appropriate oxygen saturations on 1 L/min via nasal cannula. The patient's autoimmune panel was sent yesterday. The patient had an uneventful night and has no specific complaints this morning. He is agreeable to outpatient pulmonary follow-up. Objective Data Objective Data The patient's most recent lab work, culture data and imaging studies have all been personally reviewed. Infectious work-up has been unrevealing to date. Vital Signs: Vital Signs Temp Pulse Resp BP Pulse Ox O2 Del Method O2 Flow Rate 97.7 F L 71 18 103/61 96 Nasal Cannula 1 06/27/23 04:30 06/27/23 04:30 06/27/23 04:30 06/27/23 04:30 06/27/23 04:30 06/27/23 04:30 06/27/23 04:30 Oxygen Flow Rate (L/min) 1 Oxygen Delivery Method Nasal Cannula Weight: 176 lb 2.389 oz Body Mass Index (BMI) 26.7 Intake & Output: Intake and Output for Last 24 Hours 06/25/23 06/26/23 06/27/23 23:59 23:59 23:59 Intake Total 2090.00 / 2450.00 360 / 360 Output Total 400 / 400 Balance 1690.00 / 2050.00 360 / 360 Lab / Micro Data Attestation: I reviewed the patient's lab results. 06/26/23 07:56 06/26/23 07:56 Labs: Laboratory Results - last 24 hr 06/26/23 07:56: WBC 8.1, RBC 4.44 L, Hgb 12.9 L, Hct 42.2, MCV 95.0 H, MCH 29.1, MCHC 30.6 L, RDW Std Deviation 48.7 H, RDW Coeff of [place] 13.8, Plt Count 220, MPV 10.1, Immature Gran % (Auto) 0.500, Neut % (Auto) 85.7 H, Lymph % (Auto) 12.6 L, [place] % (Auto) 1.0, Eos % (Auto) 0.1, Baso % (Auto) 0.1, Absolute Neuts (auto) 6.9, Absolute Lymphs (auto) 1.02, Nucleated RBC % 0, Sodium 141, Potassium 5.0, Chloride 109 H, Carbon Dioxide 23.0, Anion Gap 9, BUN 39 H, Creatinine 2.06 H, Estim Creat Clear Calc 24.44, Est GFR (MDRD) Af Amer 39 L, Est GFR (MDRD) Non-Af 33 L, BUN/Creatinine Ratio 18.9, Glucose 202 H, Calcium 8.6, Phosphorus 3.5, TSH 0.45, Rheumatoid Factor < 10.0 Micro: Microbiology 06/26/23 01:55 Sputum, Expectorated/Coughed Gram Stain - Final 06/26/23 06:44 Urine Catheter - Catheter Legionella Antigen - Final 06/26/23 06:44 Urine Catheter - Catheter Streptococcus pneumoniae Antigen (M - Final 06/26/23 01:50 Mucosa - Nasopharyngeal Respiratory Panel (PCR) - Final 06/26/23 01:50 Mucosa - Nasopharyngeal Coronavirus COVID-19 PCR - Final 06/25/23 19:50 Nasal Secretion SARS-CoV-2 & FLU Antigen (Rapid) - Final Radiography Diagnostic Testing: Radiology Impression Lung Scan-VQ NM 06/26/23 05:55 IMPRESSION: 1. Heterogeneous ventilation scan consistent with airspace disease. 2. Low probability for pulmonary embolism. Electronically Signed: Omid Arellano MD at 12:45 EDT , Chest X-Ray 06/26/23 09:00 IMPRESSION: No change from 06/25/2023. Electronically Signed: Kameron Baca MD at 14:43 EDT , Physical Exam Const alert and no apparent distress General Appearance: cooperative HEENT normocephalic and head/scalp atraumatic General Ear: hearing grossly impaired Eyes PERRL, EOMs intact bilaterally and conjunctivae normal Neck supple General: trachea midline Chest inspection of chest normal Resp normal respiratory effort Effort and Inspection: able to speak in complete sentences Auscultation: rales Cardio regular rate and regular rhythm GI normal to inspection, nondistended, normoactive bowel sounds Extremity no clubbing, cyanosis or edema Skin no rashes or lesions noted Neuro oriented x3, CN's II-XII intact bilaterally and moves all extremities Psych cooperative and affect normal Charges/Coding Visit Charges Inpatient E&M: 61044 Subs Hosp L2
[2023-06-27] MEDS: Methylprednisolone Sod Succ 40 MG/ML VIAL IV (06:09)
[2023-06-27] MEDS: Levothyroxine 125 MCG Tablet PO (06:09)
[2023-06-27] MEDS: 0.9% Saline Lock 10 ML Syringe IV (06:09)
[2023-06-27] MEDS: Enoxaparin 30 MG/0.3 ML Syringe SC (06:09)
[2023-06-27] MEDS: Metoprolol Tartrate 25 MG Tablet PO (08:39)
[2023-06-27] MEDS: Pravastatin 40 MG Tablet PO (08:41)
[2023-06-27] MEDS: Aspirin 81 MG TAB.CHEW PO (08:41)
[2023-06-27] MEDS: guaiFENesin 1,200 MG Tablet 1200 MG PO (08:41)
[2023-06-27] MEDS: Pantoprazole Sodium 40 MG Tablet PO (08:42)
--- NOTE | 2023-06-27 12:19 | DCINST_ITS ---
Discharge Instructions Diet Discharge Diet: No restrictions Activity Discharge Activity: Return to Normal Activity Weight Bearing Status: Full weight bearing Follow Up Care Please Follow Up With: Santiago Riley DO When: 2 to 4 weeks Test Results: Test results from this visit will be discussed in further detail at your follow- up appointment, if applicable. Pending Tests Upon Discharge: Autoimmune labs Discharge Plan Admission Admit Date/Time: 06/25/23 23:07 Attending Provider: Abilio Sow Primary Care Provider: Dayday Spicer Consulting Providers: Austin Armendariz Instructions Additional Instructions / Restrictions: Continue all home medications as normal on discharge. The pulmonology office will call to schedule an appointment for you in the next 2 to 4 weeks. They will follow-up on your autoimmune labs at that time as well. Discharge Orders/Prescriptions Prescriptions: Continued pravastatin 40 MG tablet 40 mg PO DAILY Patient Comments: cholesterol levothyroxine 125 MCG tablet 125 mcg PO DAILY Patient Comments: thyroid aspirin 81 MG tablet,chewable 81 mg PO DAILY@0800 Patient Comments: blood thinner metoprolol tartrate 25 MG tablet 12.5 mg PO BID Patient Comments: blood pressure atorvastatin 80 mg tablet 80 mg PO DAILY lisinopril 5 mg tablet 2.5 mg PO DAILY omeprazole 40 mg capsule,delayed release(DR/EC) 40 mg PO DAILY Referrals / Follow Up: Dayday Spicer MD [Primary Care Provider] - Disposition Disposition (needs filled in before D/C Order can be placed): Home, Self Care
--- NOTE | 2023-06-27 12:29 | DS.PCM_ITS ---
Providers Date of Admission: 06/25/23 Date of Discharge: 06/27/23 Primary Care Physician: Dr. 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 / Pulmonary Medicine Routine Consulting Provider: [facility] Reason for Consult: SOB worsening, Lung fibrosis EMERGENT Consult: No MD Notified: Yes Date Notified: 06/26/23 Time Notified: 00:48 Method of Notification: Text Reason For Visit: DYSPNEA Diagnosis Discharge Diagnosis (1) SOB (shortness of breath): Status: Acute Code(s): R06.02 - Shortness of breath Medications at Discharge Home Medications aspirin 81 mg chewable tablet 81 mg PO DAILY@0800 02/07/15 levothyroxine 125 mcg tablet 125 mcg PO DAILY 02/07/15 metoprolol tartrate 25 mg tablet 12.5 mg PO BID 02/07/15 pravastatin 40 mg tablet 40 mg PO DAILY 02/07/15 atorvastatin 80 mg tablet 80 mg PO DAILY 06/25/23 lisinopril 5 mg tablet 2.5 mg PO DAILY 06/25/23 omeprazole 40 mg capsule,delayed release 40 mg PO DAILY stomach 06/26/23 Hospital Course Operations None Procedures - (CT chest without contrast, V/Q scan, chest x-ray) Summary of Care Provided Minutes Spent on Discharge: 35 Hospital Course: Patient is an 87-year-old male with history of chronic interstitial lung disease, CAD s/p CABG and PCI, hyperlipidemia and GERD who presented to [facility] ED on 06/25/2023 with worsening shortness of breath. Short hospital course with medical conditions addressed as noted below. Hypoxia, resolved; history of chronic interstitial lung disease: Presented with progressive shortness of breath over the last 3 to 4 weeks. Chest x-ray showed interstitial fibrotic changes of the lungs, moderate cardiac enlargement, no change from previous chest x-ray. CT chest without contrast showed bilateral peripheral pulmonary fibrosis, no evidence of consolidative pneumonia. VQ scan with low probability of pulmonary embolism. Vital stable on admit, WBC count normal, COVID and respiratory panel negative, urine antigens negative. Pulmonology followed. Suspected this could be progression of IPF, however c annot be sure as there was no prior imaging for comparison. Autoimmune panel was ordered and was pending on discharge. Patient had significant improvement during short hospitalization. Completed home O2 walk test prior to discharge and oxygen saturations remained greater than 90%, did not require oxygen on discharge. Plan is for close outpatient follow-up with pulmonology. Discharge diagnoses: ? Hypoxia, resolved ? History of chronic interstitial lung disease ? CAD s/p CABG and PCI ? Hypothyroidism ? GERD Total clinical time spent by myself addressing the patient's discharge needs: 35 minutes. Physical Exam Const alert and oriented x3 Constitutional Narrative: Pleasant elderly male, sitting comfortably in bed, conversing normally, no acute distress. Satting well on room air, no increased work of breathing noted. General Appearance: cooperative and comfortable HEENT normocephalic, head/scalp atraumatic, hearing grossly normal bilaterally, nasal mucous membranes and turbinates normal and moist oral mucous membranes Eyes PERRL, EOMs intact bilaterally and conjunctivae normal Neck full ROM, no lymphadenopathy and supple Lymph Lymphatic: no lymphadenopathy noted Chest inspection of chest normal Resp Resp Narrative: Bilateral crackles noted, otherwise with good air movement bilaterally, no wheezing noted. Cardio regular rate, regular rhythm, no murmurs and peripheral pulses 2+ throughout GI normal to inspection, nondistended, normoactive bowel sounds, soft to palpation, non-tender and non-distended Back/Spine normal ROM Extremity normal to inspection, full ROM and no pedal edema Skin no rashes or lesions noted Psych mental status grossly normal Weight / BMI Weight Weight: 79.9 kg Body Mass Index (BMI) 26.7 ABG / Lab / Microbiology Data 06/26/23 07:56 06/26/23 07:56 Microbiology: Microbiology 06/26/23 01:55 Sputum, Expectorated/Coughed Gram Stain - Final 06/26/23 01:55 Sputum, Expectorated/Coughed Respiratory Culture - Preliminary Appears to be normal respiratory garcia. Further studies to follow. 06/25/23 21:40 Urine, Clean Catch Urine Culture - Preliminary Culture exhibits no growth. 06/26/23 06:44 Urine Catheter - Catheter Legionella Antigen - Final 06/26/23 06:44 Urine Catheter - Catheter Streptococcus pneumoniae Antigen (M - Final 06/26/23 01:50 Mucosa - Nasopharyngeal Respiratory Panel (PCR) - Final 06/26/23 01:50 Mucosa - Nasopharyngeal Coronavirus COVID-19 PCR - Final 06/25/23 19:50 Nasal Secretion SARS-CoV-2 & FLU Antigen (Rapid) - Final Radiography Diagnostic Testing: Radiology Impression Lung Scan-VQ NM 06/26/23 05:55 IMPRESSION: 1. Heterogeneous ventilation scan consistent with airspace disease. 2. Low probability for pulmonary embolism. Electronically Signed: Omid Arellano MD at 12:45 EDT , Chest X-Ray 06/26/23 09:00 IMPRESSION: No change from 06/25/2023. Electronically Signed: Kameron Baca MD at 14:43 EDT , D/C Instructions Discharge Diet: No restrictions Weight Bearing Status: Full weight bearing Pending Tests Upon Discharge: Autoimmune labs Please Follow Up With: Santiago Riley DO When: 2 to 4 weeks Meaningful Use Info Meaningful Use Diagnoses (Choose all that apply): None applicable Discharge Plan Admission Admit Date/Time: 06/25/23 23:07 Primary Reason for Your Visit: Shortness of breath Attending Provider: Abilio Sow Primary Care Provider: Dayday Spicer Consulting Providers: Austin Armendariz Instructions Additional Instructions / Restrictions: Continue all home medications as normal on discharge. The pulmonology office will call to schedule an appointment for you in the next 2 to 4 weeks. They will follow-up on your autoimmune labs at that time as well. Discharge Orders/Prescriptions Prescriptions: Continued pravastatin 40 MG tablet 40 mg PO DAILY Patient Comments: cholesterol levothyroxine 125 MCG tablet 125 mcg PO DAILY Patient Comments: thyroid aspirin 81 MG tablet,chewable 81 mg PO DAILY@0800 Patient Comments: blood thinner metoprolol tartrate 25 MG tablet 12.5 mg PO BID Patient Comments: blood pressure atorvastatin 80 mg tablet 80 mg PO DAILY lisinopril 5 mg tablet 2.5 mg PO DAILY omeprazole 40 mg capsule,delayed release(DR/EC) 40 mg PO DAILY Referrals / Follow Up: Dayday Spicer MD [Primary Care Provider] - Disposition Disposition (needs filled in before D/C Order can be placed): Home, Self Care Charges/Coding Visit Charges Inpatient E&M: 20152 Disch Hosp >30min
[2023-06-28 13:07] LABS: ANTINUCLEAR ANTIBODIES DIRECT Negative (Negative)
[2023-06-28 16:08] LABS: CCP IgG Antibodies 3 units (0-19); Cytoplasmic Ab (C-ANCA) <1:20 titer (Neg:<1:20); Perinuclear Ab (P-ANCA) 1:20 titer (Neg:<1:20)
== END 2023-06-27 13:25 | disposition home or self-care (01) | DRG 198 ==
LOC: ED 21:51 → PCU 23:17
PROVIDERS: Internal Medicine Critical Care Medicine; Admitting Provider Internal Medicine; Emergency Provider Student in an Organized Health Care Education/Training Program; PCP Family Medicine; Visit Provider Hospitalist
DX: J84.10 Pulmonary fibrosis, unspecified (principal); E03.9 Hypothyroidism, unspecified; N18.9 Chronic kidney disease, unspecified; K44.9 Diaphragmatic hernia without obstruction or gangrene; K21.9 Gastro-esophageal reflux disease without esophagitis; E78.5 Hyperlipidemia, unspecified; Z51.5 Encounter for palliative care; Z79.82 Long term (current) use of aspirin; Z95.1 Presence of aortocoronary bypass graft
CPT/HCPCS: 36415; 71045; 71046; 71250; 78598; 80048; 80053; 81001; 82550; 83605; 83735; 83880; 84100; 84443; 84484; 85025; 85379; 85610; 85730; 86038; 86200; 86225; 86235; 86256; 86431; 87040; 87070; 87086; 87205; 87428; 87449; 87633; 87635; 87641; 93005; 93970; 94640; 94668; 99285; A9540; A9567; J7030; J7050; A4216; J0696

== ENCOUNTER 2023-06-28 13:31 | Emergency (ER) | payer MEDICARE, OTHER, SELFPAY ==
[2023-06-28] VITALS (7 sets, daily range): BP systolic 133–159; BP diastolic 66–122; PULSE 51–62; RESP 16–20; TEMP 36.3–36.6; O2SAT 94–99; BMI 29.1
--- NOTE | 2023-06-28 13:36 | CT_ITS ---
STUDY: STROKE PROTOCOL CT BRAIN WITHOUT CONTRAST REASON FOR EXAM: Male, 87 years old. Neuro deficit, acute, stroke suspected RADIATION DOSAGE (If Supplied By Facility): CTDIvol = ( ) mGy, DLP = ( ) mGycm TECHNIQUE: Transaxial CT imaging of the brain was performed without administration of intravenous contrast material. Individualized dose optimization techniques were used for this CT. COMPARISON: None. FINDINGS: Normal soft tissue structures. Normal calvarium. There is mild cerebral atrophy with widening of the extra-axial spaces and ventricular dilatation. There are areas of decreased attenuation within the white matter tracts of the supratentorial brain, consistent with microvascular disease changes. Normal basal ganglia and thalami. Normal brainstem. Normal cerebellum. Asymmetrically dense right middle cerebral artery favored to represent atherosclerotic plaque versus a clot, however the parenchyma is not effaced or edematous by CT criteria. This can be further assessed by CTA. See image #19/44 series 2. There is no intracranial hemorrhage. There are no findings of an acute ischemic infarction. Normal visualized paranasal sinuses. ASPECTS Score for Acute Strokes: 10 CT/STROKE Brain/Head without Cont IMPRESSION: 1. Asymmetrically dense right middle cerebral artery favored to represent atherosclerotic plaque versus a clot, however the parenchyma is not effaced or edematous by CT criteria. This can be further assessed by CTA. 2. Concern for stroke/positive symptomatology should be further evaluated with CT brain perfusion/CTA or MRI of the brain for further assessment. N.B. : The above Results were Read Back by Mark Knox MD to Rand Jaffe DO, and understanding confirmed on 06/28/2023 13:54:58 (ET). Electronically Signed: Mark Knox MD at 13:56 EDT ,
--- NOTE | 2023-06-28 13:36 | CT_ITS ---
STUDY: CTA HEAD AND NECK WITH CONTRAST REASON FOR EXAM: Male, 87 years old. Neuro deficit, acute, stroke suspected RADIATION DOSAGE (If Supplied By Facility): CTDIvol = ( 21.49 ) mGy, DLP = ( 671.51 ) mGycm TECHNIQUE: CT angiography was performed with a multi-detector CT scanner. Data acquisition was obtained from the skull base through the vertex following intravenous administration of IV 100mL [id number]-[id number]. MIP images were reconstructed from the axial data set. Post-processing of the angiographic images was performed, with multiplanar reformation and 3D reconstruction. Individualized dose optimization techniques were used for this CT. 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 Acute clot (intermixed with atherosclerotic plaque) occludes 80% of the lumen of the right M1 segment of the middle cerebral artery although small amount of blood flow is still seen around the clot opacifying the lumen of the MCA and some of the distal terminal branches and sylvian/M2 segment of the MCA. Normal bilateral petrous carotid arteries. Normal right cavernous carotid artery with a normal supraclinoid bifurcation. Normal left cavernous carotid artery with a normal supraclinoid bifurcation. Normal right A1 segments of the anterior cerebral artery. Normal left A1 segments of the anterior cerebral artery. Normal intact anterior communicating artery (ACOM). Normal bilateral A2 segments of the anterior cerebral arteries. Normal left M1 and M2 segments of the middle cerebral arteries, with a normal M1 bifurcation. There is non-visualization of the right posterior communicating artery (PCOM). 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 There is a small atretic right vertebral artery with a dominant left vertebral artery. Normal basilar artery with a normal basilar bifurcation. The visualized bilateral superior cerebellar (SCA) arteries are normal. Normal bilateral P1, P2 and visualized P3 segments of the posterior cerebral arteries. There is no demonstrated aneurysm of the ramona of [place]. There is no demonstrated abnormality of the visualized brain. AORTIC ARCH: Normal visualized aortic arch. Normal origins of the brachiocephalic, left common carotid, and left subclavian arteries. RIGHT CAROTID ARTERIES: There is atherosclerotic plaque formation of the common carotid artery, but without a hemodynamically significant stenosis. There is extensive atherosclerotic plaque formation with severe narrowing of the right carotid bulb with a hemodynamically significant stenosis. There is complete occlusion of the origin of the right internal carotid artery without demonstrated arterial flow. There is moderate atherosclerotic plaque formation of the origin of the right external carotid artery with an estimated stenosis of 50-69% stenosis. LEFT CAROTID ARTERIES: Normal left common carotid artery (CCA). There is extensive atherosclerotic plaque formation with severe narrowing of the carotid bulb with a hemodynamically significant stenosis. There is severe atherosclerotic plaque formation of the origin of the left internal carotid artery with a near complete occlusion. Normal visualized cervical portion of the left internal carotid artery. Normal origin of the left external carotid artery (ECA). VERTEBRAL ARTERIES: Normal bilateral vertebral arteries. CT/STROKE CTA Head AND Neck W/Con IMPRESSION: 1. 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 Acute clot (intermixed with atherosclerotic plaque) occludes 80% of the lumen of the right M1 segment of the middle cerebral artery although small amount of blood flow is still seen around the clot opacifying the lumen of the MCA and some of the distal terminal branches and sylvian/M2 segment of the MCA. 2. Severe atherosclerotic plaque and stenosis at the origin of the left internal carotid artery with near complete occlusion, referral to vascular surgeon for assessment is recommended. N.B. : The above Results were Read Back by Mark Knox MD to Rand Jaffe DO, and understanding confirmed on 06/28/2023 14:16:57 (ET). Electronically Signed: Makr Knox MD at 14:20 EDT ,
--- NOTE | 2023-06-28 13:50 | ED.RN ---
Pt arrives to room from CT at this time.
[2023-06-28 13:56] LABS: Absolute Lymphocyte Count 1.47 X10^3/uL (0.83-4.51); Absolute Neutrophil Count 7.9 X10^3/uL (2.0-7.7); Basophil# 0.02 X10^3/uL; Basophil% 0.2 % (0-1); Eosinophil# 0.25 X10^3/uL; Eosinophils% 2.3 % (0-5); Hematocrit 40.6 % (40-54); Hemoglobin 12.5 g/dL (13.0-16.5); Lymphocyte # 1.47 X10^3/ul (0.83-4.51); Lymphocyte % 13.8 % (19-41); Mean Corp Hgb Conc 30.8 g/dL (32-36); Mean Corpuscular Volume 97.4 fL (80-94); Mean Platelet Vol. 9.9 fl (6.2-12.0); Monocyte% 9.4 % (0-10); NRBC Flagged by Analyzer 0 % (0-5); Neutrophil # 7.88 X10^3/uL (2.7-7.7); Neutrophil % 73.6 % (47-70); Platelet Count 235 K/mm3 (150-450); RBC Distribution Width CV 14.5 % (11.6-14.6); RBC Distribution Width SD 52.2 fl (35.1-43.9); Red Blood Count 4.17 M/mm3 (4.6-6.2); White Blood Count 10.7 K/mm3 (4.4-11.0)
[2023-06-28 14:14] LABS: International Normalized Ratio 1.1; Prothrombin Time (Protime)PT. 13.9 SECONDS (11.7-14.9)
[2023-06-28 14:15] LABS: Partial Thromboplast Time 29.7 Seconds (24.1-36.2)
[2023-06-28 14:17] LABS: Anion Gap 4 (5-15); BUN 46 mg/dL (7-18); BUN/Creat Ratio 26.4 RATIO (10-20); Calcium,Total 8.6 mg/dL (8.5-10.1); Chloride 114 mmol/L (98-107); Creatinine, Serum 1.74 mg/dL (0.70-1.30); EST Glomerular Filtration Rate 40 mL/min (>60); Est Glom Filt Rate - Afr Amer 48 mL/min (>60); Estimated Creatinine Clearance 28.94 ml/min; Glucose 87 mg/dL (74-106); Potassium 4.4 mmol/L (3.5-5.1); Sodium Level 143 mmol/L (136-145); Troponin-I HS 1174 pg/mL (3.0-78.0)
--- NOTE | 2023-06-28 14:21 | NURSING ---
AUTOLAUNCH, TALKED TO TAJ
--- NOTE | 2023-06-28 14:22 | ED.VIS.STROK ---
HPI History of Present Illness Chief Complaint: Stroke Alert Informant: patient and parent Narrative Narrative: Patient is 87-year-old male with history of hypothyroid, GERD, CKD 3, coronary artery disease status post CABG and PCI, hyperlipidemia and pulmonary fibrosis with recent admission for hypoxia and suspected exacerbation of chronic interstitial lung disease. He was discharged at 2 PM yesterday afternoon. notes he seemed normal when he went to bed at midnight. When he woke up this morning she notes his speech seemed a little off and he was staggering. He was having use his right side more to help him. As the day has progressed he has become more weak on the left side has had worsening slurred speech. He was supposed to have a doctor's appointment at 145 but the took him here to our emergency room because of a progression of these neurologic symptoms. He is not on any blood thinners. No history of stroke per . Patient was fishing last week and is highly active at baseline per . She notes his breathing is improved. [facility] Medical History Hyperlipidemia Hypertension Pulmonary fibrosis Home Medications aspirin 81 mg chewable tablet 81 mg PO DAILY@0800 02/07/15 [History Last Taken 06/28/23] levothyroxine 125 mcg tablet 125 mcg PO DAILY 02/07/15 [History Last Taken 02/07/15 08:00] metoprolol tartrate 25 mg tablet 12.5 mg PO BID 02/07/15 [History Last Taken 02/07/15 08:00] atorvastatin 80 mg tablet 80 mg PO DAILY 06/25/23 [History Last Taken Unknown] lisinopril 5 mg tablet 2.5 mg PO DAILY 06/25/23 [History Last Taken Unknown] omeprazole 40 mg capsule,delayed release 40 mg PO DAILY stomach 06/26/23 [History Last Taken Unknown] Allergy/AdvReac Type Severity Reaction Status Date / Time No Known Allergies Allergy Verified 06/25/23 19:29 Surgical History History of open heart surgery Social History current occupational status: retired Smoking Status: Never smoker ROS ROS ED Constitutional Constitutional ED: Denies chills or fever(s) Eyes Eyes: Denies change in vision Cardiovascular Cardiovascular: Denies chest pain Respiratory/Chest Respiratory/Chest: Reports cough and dyspnea Gastrointestinal Gastrointestinal: Denies nausea or vomiting Integumentary Denies rash Neurologic Neurologic: Reports weakness and other Details: slurred speech ; Denies paresthesias EXAM Physical Exam Const Vital Signs: 06/28/23 13:32 06/28/23 13:54 06/28/23 14:07 Temperature 97.8 F 97.4 F L Temperature Source Temporal Temporal Pulse Rate 52 L 54 L 62 Respiratory Rate 20 H 18 20 H Respiratory Pattern Blood Pressure 159/122 H 154/75 H Blood Pressure Mean 134 101 Pulse Ox 94 96 96 Oxygen Delivery Method Room Air Room Air Room Air 06/28/23 14:11 06/28/23 14:15 06/28/23 14:32 Temperature Temperature Source Pulse Rate 57 L 57 L Respiratory Rate 18 18 Respiratory Pattern Normal Blood Pressure 137/80 H Blood Pressure Mean 99 Pulse Ox 97 Oxygen Delivery Method Room Air Room Air 06/28/23 14:32 06/28/23 14:30 06/28/23 14:45 Temperature Temperature Source Pulse Rate 51 L 57 L Respiratory Rate 16 16 Respiratory Pattern Blood Pressure 155/84 H 133/66 H Blood Pressure Mean 107 88 Pulse Ox 99 97 94 Oxygen Delivery Method Room Air Room Air Room Air Positive well nourished and well developed General Appearance ED: well developed HEENT Reports moist mucous membranes Eyes Eyes Narrative: Difficulty with bilateral gaze cross midline to the left Neck supple Chest Wall inspection of chest normal Resp normal respiratory effort Resp Narrative: Scattered wheezing, seems to have some difficulty clearing secretions Cardio no murmurs Rate: regular rate GI normal to inspection, nondistended, normoactive bowel sounds and soft to palpation Extremity normal to inspection General Extremety ED: Negative for deformity or edema General Extremity: Negative for deformity or edema Neuro oriented x3 Neuro Narrative: Left-sided deficits, dysarthria see NIH below Psych mental status grossly normal Skin no wounds NIHSS NIHSS Initial: 1a Level of Consciousness: 0 1b LOC Questions (Score 2 if aphasic/stupor): 0 1c LOC Commands (Only score 1st attempt): 0 2 Best Gaze (If aphasic, use reflexive mvmts.): 2 3 Visual: 1 4 Facial Palsy: 2 5 Motor Arm Right (UN = amputation/fusion): 0 5 Motor Arm Left: 4 6 Motor Leg Right: 0 6 Motor Leg Left: 2 7 Limb ataxia (Only + if out of proportion): 0 8 Sensory (Aphasia/stupor=0 or 1, coma=2): 1 10 Dysarthria (mute, coma=2, intubated=UN): 2 Total Score: 14 MDM MDM MDM Narrative Medical decision making narrative: Patient is an 87 year old male presenting from home with worsening left-sided deficits. Stroke alert was called in triage. Patient evaluated by myself immediately in triage. He has significant neurologic deficits concerning for MCA stroke. Even though reports a history of CKD will obtain CTA for concern of LVO. CT of the brain reviewed by myself and discussed with neuroradiology does not show any acute process however there is questionable dense MCA sign. 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 Patient is evaluated by Dr. Liu, KYLEE telestroke who agrees that patient should be transferred for evaluation of clot retrieval associated with his LVO. Family at the bedside, his daughter, is requesting transfer to [facility] or within the [facility] system. Spoke with critical care transport to auto launch patient to [facility]. Spoke with stroke neurology at [facility], Dr. Maldonado, who is agreeable with this plan of care. Patient will be transferred to [facility]. Patient's EKG shows sinus bradycardia with LVH and HS trop shows NSTEMI with high-sensitivity troponin of 1174. Patient not complaining of any chest pain. He is having coarse breath sounds and does not seem like he is clearing secretions well. Is given a DuoNeb. His states his breathing still improved from his recent admission. Lab work otherwise at his baseline. Patient is excepted at [facility] to the neuro ICU with plans to go directly to the endovascular suite by Dr. Aguirre. History & Record Review Additional record(s) reviewed:: Prior inpatient record (Recent admission for hypoxia thought to be secondary to exacerbation of pulmonary fibrosis) Lab Data Attestation: I reviewed the patient's lab results. Labs: Laboratory Results - last 24 hr 06/28/23 13:42 WBC 10.7 RBC 4.17 L Hgb 12.5 L Hct 40.6 MCV 97.4 H MCH 30.0 MCHC 30.8 L RDW Std Deviation 52.2 H RDW Coeff of Allison 14.5 Plt Count 235 MPV 9.9 Immature Gran % (Auto) 0.700 Neut % (Auto) 73.6 H Lymph % (Auto) 13.8 L Gunnison % (Auto) 9.4 Eos % (Auto) 2.3 Baso % (Auto) 0.2 Absolute Neuts (auto) 7.9 H Absolute Lymphs (auto) 1.47 Nucleated RBC % 0 PT 13.9 INR 1.1 APTT 29.7 Sodium 143 Potassium 4.4 Chloride 114 H Carbon Dioxide 25.0 Anion Gap 4 L BUN 46 H Creatinine 1.74 H Estim Creat Clear Calc 28.94 Est GFR (MDRD) Af Amer 48 L Est GFR (MDRD) Non-Af 40 L BUN/Creatinine Ratio 26.4 H Glucose 87 Calcium 8.6 Troponin I High Sens 1174 H* Radiography Diagnostic Testing: Clinical Impression(s) from Imaging Studies Brain CT 06/28/23 13:36 IMPRESSION: 1. Asymmetrically dense right middle cerebral artery favored to represent atherosclerotic plaque versus a clot, however the parenchyma is not effaced or edematous by CT criteria. This can be further assessed by CTA. 2. Concern for stroke/positive symptomatology should be further evaluated with CT brain perfusion/CTA or MRI of the brain for further assessment. N.B. : The above Results were Read Back by Mark Knox MD to Rand Jaffe DO, and understanding confirmed on 06/28/2023 13:54:58 (ET). Electronically Signed: Mark Knox MD at 13:56 EDT , ADDENDUM: 06/28/23 2365 IMPRESSION: 1. Asymmetrically dense right middle cerebral artery favored to represent atherosclerotic plaque versus a clot, however the parenchyma is not effaced or edematous by CT criteria. This can be further assessed by CTA. 2. Concern for stroke/positive symptomatology should be further evaluated with CT brain perfusion/CTA or MRI of the brain for further assessment. N.B. : The above Results were Read Back by Mark Knox MD to Rand Jaffe DO, and understanding confirmed on 06/28/2023 13:54:58 (ET). Electronically Signed: Mark Knox MD at 13:56 EDT , Head/Neck CTA 06/28/23 13:36 IMPRESSION: 1. 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 Acute clot (intermixed with atherosclerotic plaque) occludes 80% of the lumen of the right M1 segment of the middle cerebral artery although small amount of blood flow is still seen around the clot opacifying the lumen of the MCA and some of the distal terminal branches and sylvian/M2 segment of the MCA. 2. Severe atherosclerotic plaque and stenosis at the origin of the left internal carotid artery with near complete occlusion, referral to vascular surgeon for assessment is recommended. N.B. : The above Results were Read Back by Mark Knox MD to Rand Jaffe DO, and understanding confirmed on 06/28/2023 14:16:57 (ET). Electronically Signed: Mark Knox MD at 14:20 EDT , ADDENDUM: 06/28/23 1427 IMPRESSION: 1. 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 Acute clot (intermixed with atherosclerotic plaque) occludes 80% of the lumen of the right M1 segment of the middle cerebral artery although small amount of blood flow is still seen around the clot opacifying the lumen of the MCA and some of the distal terminal branches and sylvian/M2 segment of the MCA. 2. Severe atherosclerotic plaque and stenosis at the origin of the left internal carotid artery with near complete occlusion, referral to vascular surgeon for assessment is recommended. N.B. : The above Results were Read Back by Mark Knox MD to Rand Jaffe DO, and understanding confirmed on 06/28/2023 14:16:57 (ET). Electronically Signed: Mark Knox MD at 14:20 EDT , Chest X-Ray 06/28/23 14:44 IMPRESSION: Moderate chronic patchy interstitial opacities of both lungs which appear to represent sequela of chronic fibrosis. No definite new infiltrates are not visualized on this study Electronically Signed: Mark Knox MD at 15:20 EDT , Rhythm Strip Rhythm Strip: Sinus Rhythm Rate: 52 Ectopy: None EKG Initial EKG: Attestation: I personally reviewed and interpreted this EKG as follows: Interpretation: Sinus Bradycardia Comments: Sinus bradycardia with first-degree AV block at a rate of 52 bpm VT interval 294 Left axis deviation LVH with QRS widening and repolarization abnormalities Compared to prior EKG on 02/07/2015 patient now has LVH changes Management Discussion w/another healthcare provider: Axminster Weaver (Stroke neurology ) and Radiologist Critical Care Time Critical Care Time: Yes Critical care time (excluding procedures): 30-74 minutes (45), Discussing w/Patient &/or Family/Lead Instructor/Flight Attendant, Discussing w/Consultants and Arranging Admission or Transfer Discharge Plan Triage Chief Complaint: Stroke Alert ED Provider: Rand Jaffe Dx/Rx/DC Orders Clinical Impression: 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, Dysarthria, Acute non-ST elevation myocardial infarction (NSTEMI), Acute left-sided weakness Prescriptions: No Action levothyroxine 125 MCG tablet 125 mcg PO DAILY Patient Comments: thyroid aspirin 81 MG tablet,chewable 81 mg PO DAILY@0800 Patient Comments: blood thinner metoprolol tartrate 25 MG tablet 12.5 mg PO BID Patient Comments: blood pressure atorvastatin 80 mg tablet 80 mg PO DAILY lisinopril 5 mg tablet 2.5 mg PO DAILY omeprazole 40 mg capsule,delayed release(DR/EC) 40 mg PO DAILY Primary Care Provider: Dayday Spicer Referrals: Dayday Spicer MD [Primary Care Provider] - Disposition Disposition: Acute Care Hospital Discharge Location: [facility] Discharge Date/Time: 06/28/23 15:05
--- NOTE | 2023-06-28 14:28 | NURSING ---
STROKE ALERT CALLED [id number]
[2023-06-28] MEDS: Ipratropium/Albuterol Sulfate 3 ML AMPUL.NEB INHALATION (14:30)
[2023-06-28] MEDS: 0.9% Normal Saline (1000mL) 1,000 ML 100 ML IV (14:43)
--- NOTE | 2023-06-28 14:44 | RAD_ITS ---
STUDY: X-RAY CHEST REASON FOR EXAM: Male, 87 years old. Neuro deficit, acute, stroke suspected TECHNIQUE: Single AP portable view of the chest. COMPARISON: June 26, 2023 FINDINGS: 1. Moderate chronic patchy interstitial opacities of both lungs which appear to represent sequela of chronic fibrosis. No definite new infiltrates are not visualized on this study 2. Moderate cardiomegaly unchanged 3. Stable CABG clips 4. Small lung volumes and trace bilateral pleural effusions are present 5. Stable mediastinum and osseous structures There is no demonstrated abnormality of the visualized soft tissue structures of the upper abdomen. RAD/Chest 1 View IMPRESSION: Moderate chronic patchy interstitial opacities of both lungs which appear to represent sequela of chronic fibrosis. No definite new infiltrates are not visualized on this study Electronically Signed: Mark Knox MD at 15:20 EDT ,
--- NOTE | 2023-06-28 14:46 | CHAPLAIN ---
Type of Pastoral Visit ___ Initial Visit ___ Follow-up Visit ___ On-call Visit ___ General Patient Visit ___ Spiritual Assessment ___ Family Conference ___ Bereavement _x__ Rapid Response ___ Code Blue ___ Other (describe below) Pastoral Care Referral From ___ Patient ___ Family ___ Nurse ___ Physician ___ Manager Of Regulatory Affairs ___ Motor Coach Bus Driver _x__ Other (describe below) Sacrament/Intervention ___ Active listening ___ Anointing ___ Rastafarian ___ Bereavement ___ Communion ___ Josee exploration ___ ___ Life review ___ Prayer ___ Reconciliation ___ Sacrament of Sick _x__ Supportive presence ___ Wedding ___ Other (describe below) Pastoral Comments stroke alert called and this distribution center associate responded to ED; pt was at CT but daughter and spouse were in the room; offered support, presence, practical help; both responded with thankfulness for offers but denied any particular needs or concerns at this time; notified SW of current status and she will follow up
--- NOTE | 2023-06-28 14:46 | NURSING ---
TRANSFER TEAM SAID PATIENT IS GOING TO [facility]
--- NOTE | 2023-06-28 14:55 | ED.RN ---
Flight crew arrives for transport.
--- NOTE | 2023-06-28 14:55 | CM.ED ---
Social Work SW introduced self and role to patient's . Pt was a stroke alert and is being flown to [facility]. Life flight is in the ED. SW offered support to spouse. Spouse denies any SW needs at this time but asks for prayers. Jessica Tomlinson MANUFACTURING SOFTWARE ENGINEER, DOOR SLINGER
[2023-06-28 18:06] LABS: Bedside Glucose 78 mg/dL (74-106)
== END 2023-06-28 15:05 | disposition short-term general hospital (02) ==
PROVIDERS: Emergency Provider Emergency Medicine; PCP Family Medicine; Visit Provider Emergency Medicine
DX: I63.311 Cerebral infarction due to thrombosis of right middle cerebral artery (principal); I69.354 Hemiplegia and hemiparesis following cerebral infarction affecting left non-dominant side; I21.4 Non-ST elevation (NSTEMI) myocardial infarction; N18.30 Chronic kidney disease, stage 3 unspecified; R53.1 Weakness; R47.81 Slurred speech; E78.5 Hyperlipidemia, unspecified; I12.9 Hypertensive chronic kidney disease with stage 1 through stage 4 chronic kidney disease, or unspecified chronic kidney disease; I69.322 Dysarthria following cerebral infarction; R00.1 Bradycardia, unspecified; Z95.1 Presence of aortocoronary bypass graft; Z95.5 Presence of coronary angioplasty implant and graft; E03.9 Hypothyroidism, unspecified
CPT/HCPCS: 70450; 70496; 70498; 71045; 80048; 82962; 84484; 85025; 85610; 85730; 93005; 96360; 96361; 99285; J7030; Q9967